=== PATIENT | female | born 1960 | race Caucasian/White ===

== ENCOUNTER 2017-11-18 11:33 | Inpatient (IN) | payer OTHER ==
[~2017-11-18] VITALS: Ht 165.1 cm; Wt 61.2 kg
--- NOTE | ~2017-11-18 | PATH ---
[facility] [address] [place] [address] PATHOLOGY RPT PROCEDURE Name: CODY SHARP Room #: 458-P [facility] IN M.R.#: [id number] Admission: 11/18/17 Date of : 64 Discharge: Report #: [id number] Path Case #: [id number] [facility] Accession Number: [id number] . 01 Material submitted: . BX GASTRITIS . 01 Clinical history: . GI bleed Gastritis, gastric ulcers, esophagitis . 02 Diagnosis: Gastric biopsy, "biopsy gastritis": - Mild chronic reactive gastropathy. - The immunoperoxidase stain for Helicobacter pylori is negative. (SHA:; 11/21/17) QRQ/11/21/2017 . 02 Electronically signed: . Primo Arita MD, Pathologist NPI- [id number] . 01 Gross description: . The specimen is received in formalin, labeled "Treasure, Cody, BX gastritis" and consists of 4 fragments of hernandez soft tissue measuring between 0.2 x 0.2 x 0.1 cm and 0.7 x 0.3 x 0.1 cm. They are entirely submitted in A1. (SDY; 11/20/2017) SYU/SYU . 02 Pathologist provided ICD-10: K31.9 . 02 CPT . 288497, H14809 Performed at: [address], [place], [place] [id number] MD Berry Sharma MD Phone: [phone] Performed at: [address] [id number] MD Celia Yeboah MD Phone: [phone]
--- NOTE | ~2017-11-18 | HC ---
[facility] [place] [address] CONSULTATION Name: ARONCODY Ricardo Room #: 458-P [facility]..#: [id number] Admission: 11/18/17 Attend Phys: Tristen Duncan MD Discharge: 11/22/17 Date of : 64 Report #: [id number] THIS REPORT FOR: //name// CC: Shagufta Duncan DATE OF SERVICE: 11/21/2017 REFERRING PROVIDER: Dr. Duncan. REASON FOR CONSULTATION: Abdominal pain. HISTORY OF PRESENT ILLNESS: The patient is a 57-year-old female with episodes of nausea and vomiting that would last for days and then resolve. The patient presented to the emergency room with complaints of ongoing nausea and vomiting and had an episode of coffee-ground emesis, for which she underwent an EGD showing evidence of multiple small gastric ulcers and erosive esophagitis, likely secondary to indomethacin use for trigeminal neuralgia. As such, the patient is undergoing care for her ulcerative disease and underwent a PIPIDA scan showing a decreased ejection fraction to 29% with reproduction of symptoms and as such, I am asked to evaluate for biliary disease. PAST MEDICAL HISTORY: Trigeminal neuralgia, seizure disorder and prior ischemic colitis. She has had multiple cranial surgeries in addition to an appendectomy, hysterectomy and a PEG tube placed. HOME MEDICATIONS: Gabapentin, indomethacin and amitriptyline. ALLERGIES: SULFA AND CODEINE. SOCIAL HISTORY: The patient does not utilize tobacco, alcohol or illicit drugs. FAMILY HISTORY: She is adopted; therefore, her family history is unknown. REVIEW OF SYSTEMS: GENERAL: The patient denies nocturnal fevers or chills. HEENT: No change of vision, change in hearing. NECK: No swelling or difficulty swallowing. HEART: No chest pain or palpitations. LUNGS: No cough or shortness of breath. ABDOMEN: Significant for nausea and vomiting. GENITOURINARY: No dysuria or hematuria. ENDOCRINE: No polyuria, polydipsia. HEMATOLOGIC: No history of bleeding or easy bruising. EXTREMITIES: No history weakness or limited range of motion. NEUROLOGIC: No history of syncope or near syncopal episodes. [facility] [address] [place] [address] CONSULTATION Name: CODY SHARP Ricardo Room #: 458-P [facility] IN ..#: [id number] Admission: 11/18/17 Attend Phys: Tristen Duncan MD Discharge: 11/22/17 Date of : 64 Report #: [id number] SKIN AND INTEGUMENT: No history of abnormal lesions or moles. PSYCHIATRIC: No history of anxiety or depression. PHYSICAL EXAMINATION: VITAL SIGNS: Temperature 98.2, pulse 69, respirations 20, blood pressure 114/68. GENERAL: Alert and oriented, in no acute distress. HEENT: Normocephalic, atraumatic. Pupils equal, round, reactive to light. NECK: Supple, without lymphadenopathy. Trachea midline. HEART: Regular rate and rhythm. LUNGS: Clear to auscultation bilaterally. ABDOMEN: Soft, nontender, nondistended. GENITOURINARY: Normal external female genitalia. EXTREMITIES: No clubbing, cyanosis or edema. NEUROLOGIC: Cranial nerves 2-12 are grossly intact. PSYCHIATRIC: Normal mood and affect. SKIN AND INTEGUMENT: No abnormal lesions or moles. LABORATORY AND X-RAY DATA: CBC showed white blood cell count is 3.7 thousand, hemoglobin 13.1, platelets 147,000. Creatinine is 0.9. Ultrasound of the abdomen is unremarkable. PIPIDA scan shows decreased ejection fraction to 29% with reproduction of nausea upon injection of cholecystokinin. EGD report was reviewed and shows grade A erosive esophagitis and gastric ulceration. ASSESSMENT AND PLAN: A 57-year-old female with erosive esophagitis and multiple small gastric ulcers, who also has biliary dyskinesia and likely chronic cholecystitis. At this time, the patient is being treated for her ulcerative disease and esophagitis with PPI therapy and Carafate for the next 2 weeks. I recommend definitive surgical management in the form of laparoscopic cholecystectomy, but not until resolution of her ulcer disease which typically takes approximately 2 weeks. As such, the patient's diet will be advanced per GI and she will follow up with me in the office in the next 1-2 weeks for planning of definitive surgical management in the form of laparoscopic cholecystectomy to be done as an outpatient. I sincerely appreciate this consult. I will follow along while hospitalized and leave any further recommendations in the patient's chart as appropriate. <ELECTRONICALLY SIGNED> By: Bridger Padilla MD, FACS 11/23/17 1000 1528 14 Bridger Padilla MD, FACS /nt
--- NOTE | ~2017-11-18 | P ---
[facility] [place] [address] PROCEDURE REPORT Name: CODY SHARP Ricardo Room #: 458-P [facility] IN M.R.#: [id number] Admission: 11/18/17 Attend Phys: Tristen Duncan MD Discharge: Date of : 64 Report #: [id number] THIS REPORT FOR: //name// CC: Shagufta Duncan MD DATE OF SERVICE: 11/19/2017 PROCEDURE PERFORMED: Upper endoscopy with biopsies. HISTORY OF PRESENT ILLNESS: The patient is a 57-year-old female with several-day history of nausea, vomiting, coffee-ground type emesis. Hemoglobin is stable at this time of 12. An EGD planned for today. DESCRIPTION OF PROCEDURE: The risks and benefits of the procedure were explained to the patient, those risks including but not limited to bleeding, perforation, the risk of sedation. She understood these risks and gave informed consent. Sedation was given using propofol per anesthesia. Next, using a standard Olympus upper endoscope, the scope was placed in the patient's mouth and advanced under direct vision through the esophagus, stomach and into the second portion of the duodenum. The upper and mid esophagus was normal in appearance. In the distal esophagus, there was evidence of grade A erosive esophagitis. Overall, the gastric mucosa was normal in the fundus and body; however, multiple small clean white based ulcers in the setting of a diffuse gastritis were noted in the antrum. There was no active bleeding, no visible vessel and no clots were seen. Biopsies were obtained to rule out H. pylori. The pylorus was normal and patent. The duodenal bulb, first and second portion were all normal. The scope was then withdrawn and the procedure terminated. The patient tolerated the procedure well. IMPRESSION: 1. Multiple small gastric ulcers likely source of recent coffee-ground emesis, possibly contributing to her nausea and vomiting. No evidence of active bleeding at this time. 2. Grade A erosive esophagitis. 3. Otherwise, normal upper endoscopy. RECOMMENDATIONS: Recommend daily PPI therapy indefinitely, especially as the patient is on indomethacin. We will add Carafate for the next 2 weeks. We will advance diet as tolerated. [address] [address] PROCEDURE REPORT Name: ARONCODY L Room #: 458-P [facility] IN ..#: [id number] Admission: 11/18/17 Attend Phys: Tristen Duncan MD Discharge: Date of : 64 Report #: [id number] Thank you for allowing me to participate in her care. <ELECTRONICALLY SIGNED> By: Vern Osborn MD 11/21/17 0830 1223 1523 Vern Osborn MD /nt
--- NOTE | ~2017-11-18 | HC ---
[facility] [place] [address] CONSULTATION Name: ARONCODY Ricardo Room #: 458-P [facility] IN .R.#: [id number] Admission: 11/18/17 Attend Phys: Tristen Duncan MD Discharge: Date of : 64 Report #: [id number] THIS REPORT FOR: //name// CC: Shagufta Duncan MD DATE OF SERVICE: 11/18/2017 HISTORY OF PRESENT ILLNESS: The patient is a 57-year-old female with 2 episodes of nausea and vomiting; one beginning several weeks ago, lasting for several days, which resolved and then in the last 4 days began having similar symptoms, persistent nausea and vomiting at home, was not having any type of coffee-ground emesis but here in the Emergency Room, she did have an episode of coffee-ground emesis. She denies any obvious melanotic stools or bright red blood per rectum. She does take indomethacin on a regular basis for history of trigeminal neuralgia. I performed a colonoscopy on the patient in October of 2014 as she had an episode of ischemic colitis and was hospitalized around that time. The colonoscopy in 2014 showed scarring from previous ischemic colitis and internal hemorrhoids but otherwise normal. She does report some mild abdominal pain. She denies any fevers or chills. She denies any chest pain or shortness of breath. Her hemoglobin is 12.7, which is her baseline today. She also had a CT scan of her abdomen and pelvis today, showed moderate amount of stool throughout the colon, no evidence of bowel inflammation, small hiatal hernia, L5-S1 fusion, abnormal general bone marrow appearance throughout the lumbar spine region and process such as myeloma can cause this appearance and further assessment recommended. Of note, the patient did say she has been having some diarrhea recently as well. PAST MEDICAL HISTORY: Trigeminal neuralgia, history of seizure disorder and previous history of ischemic colitis. She has had multiple cranial surgeries apparently, appendectomy, hysterectomy, at one point had a PEG tube placed and previous cholecystectomy. MEDICATIONS FROM HOME: Gabapentin, indomethacin and amitriptyline. ALLERGIES: To SULFA and CODEINE. REVIEW OF SYSTEMS: As per HPI. SOCIAL HISTORY: She denies any tobacco or alcohol use. FAMILY HISTORY: She is adopted, so it is unknown. PHYSICAL EXAMINATION: [facility] [address] [place] [address] CONSULTATION Name: CODY SHARP Ricardo Room #: 458-P [facility] IN M.R.#: [id number] Admission: 11/18/17 Attend Phys: Tristen Duncan MD Discharge: Date of : 64 Report #: [id number] VITAL SIGNS: Temperature is 98.2, pulse 80, blood pressure 91/52 and respiratory rate is 22. GENERAL: She is alert and oriented x 3, in no acute distress. HEENT: Sclerae nonicteric. Oropharynx clear. NECK: Supple, without lymphadenopathy. CARDIOVASCULAR: Regular rate and rhythm. CHEST: Clear to auscultation bilaterally. ABDOMEN: Soft, nontender and nondistended. Normoactive bowel sounds. EXTREMITIES: No cyanosis, clubbing or edema. LABORATORY DATA: Sodium 137, potassium 3.8, chloride 98, bicarbonate 35, BUN 27, creatinine 1.1 and glucose 109. Lipase 118, total bilirubin 0.2, AST 14, alkaline phosphatase 89, ALT is 15 and albumin 3.2. WBC is 5.3, hemoglobin 12.7 and platelet count 134. ASSESSMENT AND PLAN: Nausea, vomiting and coffee-ground emesis. We would recommend proceeding with an upper endoscopy tomorrow. Agree with proton pump inhibitor therapy and clear liquids today and n.p.o. after midnight. The patient has been on indomethacin, increasing chance for possibility of peptic ulcer disease. Her hemoglobin is stable at this time. Her CT scan is negative. We will make further recommendations after endoscopy. Thank you for allowing me to participate in her care. <ELECTRONICALLY SIGNED> By: Vern Osborn MD 11/21/17 0830 1728 2136 Vern Osborn MD /nt
[~2017-11-18 11:33] MED LIST: ACETAMINOPHEN325 M1 PO; ALBUTEROL2.5 MG/0.5 INH; AMITRIPTYLINE H10 M3 PO; AMITRIPTYLINE H25 M2 PO; CEFTIN500 MG PO; DEPAKOTE 250MG250 M1 PO; DIFLUCAN150 M1 PO; ENOXAPARIN40 MG/0.1 SUBQ; FLAGYL500 MG PO; FLEXERIL PO; FLORANEX PACKET1 GM PO; GABAPENTIN 100100 MG PO; GABAPENTIN600 M1 PO; HYDROCODONE-AP1 EAC6 PO; INDOCIN25 MG/5 ML PO; INDOMETHACIN 2525 MG PO; KEPPRA 500 MG500 M1 PO; LACTULOSE10 GM/153 PO; LEVAQUIN 500 M500 M2 PO; MIDODRINE HCL 55 M1 PO; NEURONTIN 300300 M1 PO; NYSTATIN 1100000 U/M SW&SWALLOW; NYSTATIN CREAM TOP; ONDANSETRON HCL4 M2 PO; PREVALITE PACKE1 PKT PO; TEARS NATURALE1 EACH OPHTHALMIC; TESSALON PERLE100 M1 PO; TOPAMAX 100 MG100 MG PO; TOPAMAX200 MG PO; XIFAXAN550 M1 PO; ZITHROMAX1 GM; ZPAK PO
[2017-11-18 12:16] VITALS: BP 109/66
[2017-11-18 13:15] LABS: ABSOLUTE NEUTROPHILS 1.6 thou/uL (1.4-8.2); BASOPHILS 0.4 % (0.0-2.0); EOSINOPHILS 1.9 % (0.0-3.0); HEMATOCRIT 36.2 % (37.0-47.0); HEMOGLOBIN 12.7 gm/dL (12.0-15.0); LYMPHOCYTES 58.6 % (24.0-44.0); MCH 30.6 pg (26.0-34.0); MCV 87.4 fL (80.0-100.0); MONOCYTES 9.6 % (1.0-8.0); PLATELET COUNT 134 thou/uL (150-400); POLYS 29.5 % (36.0-66.0); RBC 4.14 mil/uL (4.20-5.00); RDW 14.3 % (10.5-14.5); WBC 5.3 thou/uL (4.0-11.0)
[2017-11-18 13:22] LABS: CREATININE 1.1 mg/dL (0.6-1.0); POTASSIUM 3.8 mmol/L (3.5-5.1)
[2017-11-18 13:28] LABS: ALBUMIN 3.2 g/dL (3.4-5.0); DIRECT BILIRUBIN 0.1 mg/dL (<0.1-0.3); TOTAL BILIRUBIN 0.2 mg/dL (<0.1-1.0); TOTAL PROTEIN 6.7 g/dL (6.4-8.2)
[2017-11-18 14:04] LABS: URINE BILIRUBIN NEGATIVE (Negative); URINE BLOOD 3+ (Negative); URINE CLARITY CLEAR; URINE COLOR YELLOW; URINE GLUCOSE-RANDOM* NEGATIVE (Negative); URINE KETONES NEGATIVE (Negative); URINE LEUKOCYTES 2+ (Negative); URINE NITRITE NEGATIVE (Negative); URINE PROTEIN (DIPSTICK) 1+ (Negative); URINE UROBILINOGEN 0.2 E.U./dl (0.2-1.0)
[2017-11-18 14:25] LABS: BACTERIA None Seen /HPF (None Seen); CASTS None Seen /LPF (None Seen); CRYSTALS None Seen /LPF (None Seen); SQUAMOUS >10 Many /LPF (0-3); URINE RBC >20 Many /HPF (0-2)
[2017-11-18 15:40] LABS: ALBUMIN 3.2 g/dL (3.4-5.0); TOTAL PROTEIN 6.8 g/dL (6.4-8.2)
[2017-11-18 16:18] LABS: TSH 4.73 uIU/mL (0.358-3.740)
[2017-11-18 16:43] VITALS: BP 91/52
[2017-11-18 17:25] VITALS: BP 112/65
[2017-11-18 18:03] VITALS: BP 90/56
[2017-11-18 19:50] VITALS: BP 97/53
[2017-11-18] MEDS ORDERED: DEPAKOTE ER500 MG PO (21:47)
[2017-11-18 23:45] VITALS: BP 100/61
[2017-11-19 03:45] VITALS: BP 98/56
[2017-11-19 04:49] LABS: HEMATOCRIT 35.1 % (37.0-47.0); HEMOGLOBIN 12.3 gm/dL (12.0-15.0); MCH 31.1 pg (26.0-34.0); RBC 3.94 mil/uL (4.20-5.00); RDW 14.1 % (10.5-14.5); WBC 3.7 thou/uL (4.0-11.0)
[2017-11-19 04:56] LABS: CALCIUM 8.4 mg/dL (8.5-10.1); CREATININE 0.9 mg/dL (0.6-1.0); MAGNESIUM 1.9 mg/dL (1.8-2.4); POTASSIUM 4.1 mmol/L (3.5-5.1)
[2017-11-19 07:30] VITALS: BP 93/55
[2017-11-19 14:24] VITALS: BP 96/53
[2017-11-19 19:30] VITALS: BP 101/57
[2017-11-20 03:45] VITALS: BP 89/49
[2017-11-20 07:09] VITALS: BP 89/53
[2017-11-20 07:47] LABS: HEMATOCRIT 35.9 % (37.0-47.0); HEMOGLOBIN 12.8 gm/dL (12.0-15.0); MCH 31.1 pg (26.0-34.0); MCHC 35.7 g/dL (28.0-37.0); MCV 87.3 fL (80.0-100.0); RBC 4.11 mil/uL (4.20-5.00); RDW 14.1 % (10.5-14.5); WBC 3.8 thou/uL (4.0-11.0)
[2017-11-20 07:55] LABS: MAGNESIUM 1.9 mg/dL (1.8-2.4); POTASSIUM 3.9 mmol/L (3.5-5.1)
[2017-11-20 16:05] VITALS: BP 93/54
[2017-11-20 19:31] VITALS: BP 91/55
[2017-11-21 04:04] VITALS: BP 100/63
[2017-11-21 05:45] LABS: CALCIUM 8.7 mg/dL (8.5-10.1); CREATININE 0.9 mg/dL (0.6-1.0); MAGNESIUM 1.7 mg/dL (1.8-2.4); POTASSIUM 3.9 mmol/L (3.5-5.1)
[2017-11-21 08:00] VITALS: BP 106/58
[2017-11-21 08:16] LABS: HEMOGLOBIN 13.1 gm/dL (12.0-15.0); MCH 30.4 pg (26.0-34.0); MCHC 33.6 g/dL (28.0-37.0); MCV 90.4 fL (80.0-100.0); RBC 4.31 mil/uL (4.20-5.00); RDW 14.1 % (10.5-14.5); WBC 3.7 thou/uL (4.0-11.0)
[2017-11-21 16:00] VITALS: BP 114/68
[2017-11-21 20:09] VITALS: BP 118/64
[2017-11-22 04:08] VITALS: BP 99/61
[2017-11-22 04:30] LABS: HEMATOCRIT 38.2 % (37.0-47.0); HEMOGLOBIN 13.1 gm/dL (12.0-15.0); MCHC 34.3 g/dL (28.0-37.0); MCV 90.4 fL (80.0-100.0); RBC 4.22 mil/uL (4.20-5.00); RDW 14.2 % (10.5-14.5); WBC 3.9 thou/uL (4.0-11.0)
[2017-11-22 04:51] LABS: CALCIUM 8.5 mg/dL (8.5-10.1); CREATININE 0.9 mg/dL (0.6-1.0); MAGNESIUM 1.7 mg/dL (1.8-2.4); POTASSIUM 3.5 mmol/L (3.5-5.1)
[2017-11-22 08:12] VITALS: BP 108/65
[2017-11-22 16:04] LABS: MAGNESIUM 1.6 mg/dL (1.8-2.4)
[2017-11-22] MEDS ORDERED: LEVAQUIN 750 M750 MG PO (16:09)
[2017-11-22] MEDS ORDERED: CARAFATE 1 GM TA1 G1 PO (16:10)
[2017-11-22] MEDS ORDERED: PROTONIX40 M1 PO (16:11)
[2017-11-22 17:22] VITALS: BP 108/65
[2017-11-22 18:05] VITALS: BP 108/65
== END 2017-11-22 18:06 | disposition home or self-care (01) | DRG 871 ==
LOC: ER 11:33 → EROBS 14:12 → 3W 14:12 → 4W 11-20 21:51
PROVIDERS: Emergency Medicine; Hospitalist; Internal Medicine
PROC: 0DB68ZX Excision of Stomach, Via Natural or Artificial Opening Endoscopic, Diagnostic (ICD-10-PCS; principal; 2017-11-21)
DX: A41.9 Sepsis, unspecified organism (principal); K25.4 Chronic or unspecified gastric ulcer with hemorrhage; N39.0 Urinary tract infection, site not specified; N17.9 Acute kidney failure, unspecified; K22.10 Ulcer of esophagus without bleeding; K29.70 Gastritis, unspecified, without bleeding; K82.8 Other specified diseases of gallbladder; G40.909 Epilepsy, unspecified, not intractable, without status epilepticus; F32.9 Major depressive disorder, single episode, unspecified; K59.00 Constipation, unspecified; G50.0 Trigeminal neuralgia; B96.20 Unspecified Escherichia coli [E. coli] as the cause of diseases classified elsewhere; Z90.710 Acquired absence of both cervix and uterus; Z90.49 Acquired absence of other specified parts of digestive tract; Z88.6 Allergy status to analgesic agent; Z88.2 Allergy status to sulfonamides; Z93.1 Gastrostomy status; Z79.899 Other long term (current) drug therapy
CPT/HCPCS: 10047; 10879; 62110; 62900; 70005